=== PATIENT | male | born 2000 | race African-American/Black ===

== ENCOUNTER 2023-03-06 13:46 | Emergency (ER) | payer OTHER ==
[~2023-03-06] VITALS: Ht 175.3 cm; Wt 81.8 kg
[2023-03-06 14:26] VITALS: BP 134/77
[2023-03-06] MEDS ORDERED: IBUPROFEN 600 MG TABLET PO ONE (14:45)
[2023-03-06] MEDS ORDERED: IBUP-1554 PO ×2 (16:43→17:14)
== END 2023-03-06 16:50 | disposition home or self-care (01) ==
LOC: EMS 13:47
DX: S93.401A Sprain of unspecified ligament of right ankle, initial encounter (principal); X58.XXXA Exposure to other specified factors, initial encounter; Y93.66 Activity, soccer; Y92.89 Other specified places as the place of occurrence of the external cause; Y99.8 Other external cause status
CPT/HCPCS: 99283

== ENCOUNTER 2024-11-19 13:00 | Emergency (ER) | payer OTHER ==
[~2024-11-19] VITALS: Ht 177.8 cm; Wt 84.1 kg
[~2024-11-19 13:00] MED LIST: IBUP-1554 PO
[2024-11-19 13:07] VITALS: BP 136/98; PULSE 68; RESP 18; TEMP 98; O2SAT 100
[2024-11-19] MEDS ORDERED: IBUP-1492 PO (15:26)
[2024-11-19] MEDS ORDERED: ACET-3385 PO (15:26)
== END 2024-11-19 15:31 | disposition home or self-care (01) ==
LOC: EMS 13:00
DX: S80.01XA Contusion of right knee, initial encounter (principal); W19.XXXA Unspecified fall, initial encounter; Y93.89 Activity, other specified; Y92.89 Other specified places as the place of occurrence of the external cause; Y99.8 Other external cause status
CPT/HCPCS: 99283

== ENCOUNTER 2025-03-23 13:56 | Emergency (ER) | payer MEDICAID, OTHER ==
[~2025-03-23] VITALS: Ht 177.8 cm; Wt 86.4 kg
[~2025-03-23 13:56] MED LIST changes: +ACET-3385 PO; +IBUP-1492 PO
[2025-03-23 13:58] VITALS: BP 142/73; PULSE 56; RESP 18; TEMP 98.2; O2SAT 100
[2025-03-23] MEDS: KETOROLAC TROMETHAMINE 60 MG/2 ML VIAL IM ONE (16:34)
[2025-03-23] MEDS ORDERED: IBUP-1554 PO (17:42)
[2025-03-23] MEDS ORDERED: ACET-2080 PO (17:42)
== END 2025-03-23 18:00 | disposition home or self-care (01) ==
LOC: EMS 13:56
DX: S86.911A Strain of unspecified muscle(s) and tendon(s) at lower leg level, right leg, initial encounter (principal); S80.01XA Contusion of right knee, initial encounter; Z79.899 Other long term (current) drug therapy; W19.XXXA Unspecified fall, initial encounter; Y93.66 Activity, soccer; Y92.89 Other specified places as the place of occurrence of the external cause; Y99.8 Other external cause status
CPT/HCPCS: 99283; 29505; 73562; 96372; J1885